=== PATIENT | female | born 1985 | race African-American/Black ===

== ENCOUNTER 2018-05-04 18:34 | Inpatient (IN) | payer MEDICAID ==
[2018-05-04 20:21] LABS: ADD UMIC YES; UR ASCORBIC ACID NEGATIVE (NEGATIVE); UR BACTERIA MANY /HPF (NONE SEEN); UR BILIRUBIN (Dip) NEGATIVE (NEGATIVE); UR BLOOD (Dip) NEGATIVE (NEGATIVE); UR CLARITY CLEAR (CLEAR); UR COLOR STRAW (YELLOW); UR GLUCOSE (Dip) NEGATIVE (NEGATIVE); UR KETONES (Dip) NEGATIVE (NEGATIVE); UR LEUKOCYTE ESTERASE (Dip) 1+ Leu/ul (NEGATIVE); UR NITRITE (Dip) NEGATIVE (NEGATIVE); UR RBC 0 /HPF (0-5); UR SPECIFIC GRAVITY (Dip) 1.005 (1.003-1.030); UR SQUAMOUS EPITHELIAL CELL FEW /HPF (FEW); UR TOTAL PROTEIN (Dip) NEGATIVE (NEGATIVE); UR UROBILINOGEN (Dip) NEGATIVE (NEGATIVE); UR WBC 2 /HPF (0-5)
[2018-05-04] MEDS ORDERED: AL HYDROX/MG HYDROX/SIMETH 30 ML CUP PO (22:00)
[2018-05-04] MEDS: LACTATED RINGER'S 1,000 ML IV (22:32)
[2018-05-04] MEDS: BETAMET NA PHOS/AC(6 MG/ML) 2 ML INJ SYG IM (22:57)
[2018-05-05 01:03] LABS: ADD MAN DIFF? NO
[2018-05-05 01:07] LABS: BASOPHILS % 0.4 % (0.0-2.0); EOSINOPHILS # 0.1 10^3/ul (0.0-0.5); EOSINOPHILS % 0.5 % (0.0-7.0); HEMATOCRIT 35.2 % (37.0-47.0); HEMOGLOBIN 11.8 g/dl (12.0-16.0); LYMPHOCYTES # 1.9 10^3/ul (0.8-2.9); LYMPHOCYTES % 17.3 % (15.0-51.0); MEAN CORPUSCULAR HEMOGLOBIN 29.3 pg (29.0-33.0); MEAN CORPUSCULAR HGB CONC 33.5 g/dl (32.0-37.0); MEAN CORPUSCULAR VOLUME 87.3 fl (82.0-101.0); MEAN PLATELET VOLUME 10.5 fl (7.4-10.4); MONOCYTE # 0.7 10^3/ul (0.3-0.9); MONOCYTES % 6.2 % (0.0-11.0); NEUTROPHIL # 8.3 10^3/ul (1.6-7.5); NEUTROPHILS % 74.7 % (39.0-77.0); PLATELET COUNT 297 10^3/UL (140-415); RED BLOOD COUNT 4.03 10^6/ul (4.20-5.40); RED CELL DISTRIBUTION WIDTH 12.9 % (11.5-14.5)
[2018-05-05 01:07] LABS: WHITE BLOOD COUNT 11.1 10^3/ul (4.8-10.8)
[2018-05-05 01:28] LABS: ALANINE AMINOTRANSFERASE 23 IU/L (13-69); ALBUMIN 3.7 g/dl (3.3-4.9); ALBUMIN/GLOBULIN RATIO 1.32; ALKALINE PHOSPHATASE 117 IU/L (42-121); ANION GAP 11 (5-13); ASPARTATE AMINO TRANSFERASE 34 IU/L (15-46); BILIRUBIN,INDIRECT 0.2 mg/dl (0-1.1); BILIRUBIN,TOTAL 0.2 mg/dl (0.2-1.3); BLOOD UREA NITROGEN 4 mg/dl (7-20); CALCIUM 9.5 mg/dl (8.4-10.2); CARBON DIOXIDE 20 mmol/L (21-31); CHLORIDE 106 mmol/L (97-110); CREATININE 0.43 mg/dl (0.44-1.00); Estimated GFR > 60 mL/min (>60); GLUCOSE 73 mg/dl (70-220); POTASSIUM 3.9 mmol/L (3.5-5.1); SODIUM 137 mmol/L (135-144); TOTAL PROTEIN 6.5 g/dl (6.1-8.1)
[2018-05-05] MEDS: LACTATED RINGER'S 1,000 ML IV (03:45)
[2018-05-05] MEDS: PRENATAL VITAMIN PO (09:01)
[2018-05-05] MEDS: SOD CHLORIDE 0.9% 1,000 ML IV (11:41)
[2018-05-05] MEDS ORDERED: CEFTRIAXONE 1 GM INJ IM (12:15)
[2018-05-05] MEDS: CEFTRIAXONE 1 GM/50 ML (PMX) 50 ML IVPB (13:09)
[2018-05-05] MEDS: BETAMET NA PHOS/AC(6 MG/ML) 2 ML INJ SYG IM (17:50)
== END 2018-05-05 18:00 | disposition home or self-care (01) | DRG 831 ==
LOC: OBT 18:34 → L-D 18:36 → OBT 21:56 → L-D 21:56 → PP1 23:39
PROC: 4A1HXCZ Monitoring of Products of Conception, Cardiac Rate, External Approach (ICD-10-PCS; principal; 2018-05-04)
DX: O41.03X2 Oligohydramnios, third trimester, fetus 2 (principal); O60.03 Preterm labor without delivery, third trimester; O23.43 Unspecified infection of urinary tract in pregnancy, third trimester; Z3A.29 29 weeks gestation of pregnancy; O32.1XX1 Maternal care for breech presentation, fetus 1; O30.043 Twin pregnancy, dichorionic/diamniotic, third trimester; O36.5930 Maternal care for other known or suspected poor fetal growth, third trimester, not applicable or unspecified
CPT/HCPCS: 76815; 76817; 76818; 80053; 81001; 82731; 85025; 87081; 87086

== ENCOUNTER 2018-05-14 12:26 | Outpatient (CLI) | payer OTHER, MEDICAID ==
[2018-05-14 15:00] LABS: RHOGAM PROFILE 1 1
== END 2018-05-14 15:50 | disposition home or self-care (01) ==
LOC: OBT 12:26 → L-D 12:26 → OBT 15:50
DX: O30.003 Twin pregnancy, unspecified number of placenta and unspecified number of amniotic sacs, third trimester (principal); O09.513 Supervision of elderly primigravida, third trimester; Z3A.30 30 weeks gestation of pregnancy
CPT/HCPCS: 86850; 86870; 86885; 86900; 86901; 96372

== ENCOUNTER 2018-05-26 16:53 | Outpatient (CLI) | payer OTHER | END 2018-05-26 18:28 | disposition home or self-care (01) | LOC: OBT 16:53 → L-D 16:55 → OBT 18:28 | DX: O62.9 Abnormality of forces of labor, unspecified (principal); O30.003 Twin pregnancy, unspecified number of placenta and unspecified number of amniotic sacs, third trimester; O09.513 Supervision of elderly primigravida, third trimester; Z3A.32 32 weeks gestation of pregnancy | CPT/HCPCS: Z7500 ==

== ENCOUNTER 2018-06-05 16:46 | Outpatient (CLI) | payer OTHER ==
[2018-06-05] MEDS: LACTATED RINGER'S 1,000 ML IV (18:57)
== END 2018-06-05 22:57 | disposition home or self-care (01) ==
LOC: OBT 16:46 → L-D 16:47 → OBT 22:57
DX: O30.003 Twin pregnancy, unspecified number of placenta and unspecified number of amniotic sacs, third trimester (principal); O09.513 Supervision of elderly primigravida, third trimester; Z3A.33 33 weeks gestation of pregnancy
CPT/HCPCS: 76815; 76818

== ENCOUNTER 2018-06-26 10:32 | Outpatient (CLI) | payer OTHER | END 2018-06-26 12:10 | disposition home or self-care (01) | LOC: OBT 10:32 → L-D 10:32 → OBT 12:10 | DX: O62.9 Abnormality of forces of labor, unspecified (principal); O09.513 Supervision of elderly primigravida, third trimester; O41.93X0 Disorder of amniotic fluid and membranes, unspecified, third trimester, not applicable or unspecified; Z3A.36 36 weeks gestation of pregnancy; O30.003 Twin pregnancy, unspecified number of placenta and unspecified number of amniotic sacs, third trimester | CPT/HCPCS: 76818 ==

== ENCOUNTER 2018-06-29 07:08 | Inpatient (IN) | payer OTHER ==
[2018-06-29] MEDS ORDERED: CARBOPROST 250 MCG INJ IM ×2 (08:00→10:00)
[2018-06-29] MEDS ORDERED: METHYLERGONOVINE 0.2 MG INJ IM ×2 (08:00→10:00)
[2018-06-29] MEDS ORDERED: CEFAZOLIN 2 GM/50 ML (PMX) 50 ML IVPB (08:00)
[2018-06-29] MEDS ORDERED: OXYTOCIN 30 UNITS/LR 500 ML IV ×4 (08:00→11:20)
[2018-06-29] MEDS ORDERED: MISOPROSTOL 200 MCG TAB PR ×2 (08:00→10:00)
[2018-06-29] MEDS: LACTATED RINGER'S 1,000 ML IV ×2 (08:06→10:04)
[2018-06-29 09:22] LABS: ADD MAN DIFF? NO
[2018-06-29 09:25] LABS: WHITE BLOOD COUNT 9.6 10^3/ul (4.8-10.8)
[2018-06-29 09:25] LABS: BASOPHILS % 0.2 % (0.0-2.0); EOSINOPHILS # 0.1 10^3/ul (0.0-0.5); EOSINOPHILS % 0.6 % (0.0-7.0); HEMATOCRIT 35.8 % (37.0-47.0); HEMOGLOBIN 12.1 g/dl (12.0-16.0); LYMPHOCYTES # 1.4 10^3/ul (0.8-2.9); LYMPHOCYTES % 14.2 % (15.0-51.0); MEAN CORPUSCULAR HEMOGLOBIN 29.2 pg (29.0-33.0); MEAN CORPUSCULAR HGB CONC 33.8 g/dl (32.0-37.0); MEAN CORPUSCULAR VOLUME 86.3 fl (82.0-101.0); MEAN PLATELET VOLUME 10.8 fl (7.4-10.4); MONOCYTE # 0.8 10^3/ul (0.3-0.9); MONOCYTES % 8.7 % (0.0-11.0); NEUTROPHIL # 7.2 10^3/ul (1.6-7.5); NEUTROPHILS % 74.7 % (39.0-77.0); PLATELET COUNT 242 10^3/UL (140-415); RED BLOOD COUNT 4.15 10^6/ul (4.20-5.40); RED CELL DISTRIBUTION WIDTH 14.2 % (11.5-14.5)
[2018-06-29 09:46] LABS: INR 0.95; PROTIME 12.8 Sec (11.9-14.9)
[2018-06-29 09:47] LABS: PARTIAL THROMBOPLASTIN TIME 25.4 Sec (23.0-35.0)
[2018-06-29] MEDS ORDERED: METHYLERGONOVINE 0.2 MG TAB PO (10:00)
[2018-06-29] MEDS: CEFAZOLIN 2 GM/50 ML (PMX) 50 ML IVPB ×3 (10:00→17:48)
[2018-06-29] MEDS ORDERED: NA PHOSPHATE/BIPHOS 133 ML ENEMA PR (10:00)
[2018-06-29] MEDS ORDERED: METOCLOPRAMIDE 10 MG INJ (10:01)
[2018-06-29] MEDS ORDERED: ONDANSETRON 4 MG INJ (10:01)
[2018-06-29] MEDS ORDERED: KETOROLAC 30 MG INJ (10:01)
[2018-06-29] MEDS ORDERED: morphine SULFATE/PF (10 MG/10 ML) INJ (10:01)
[2018-06-29] MEDS: CITRIC ACID/NA CITRATE 30 ML CUP PO (10:04)
[2018-06-29 10:22] LABS: HEPATITIS B SURFACE ANTIGEN NEGATIVE (NEGATIVE)
[2018-06-29] MEDS ORDERED: FENTAnyl 50 MCG/ML VIAL ×2 (10:48→10:51)
[2018-06-29] MEDS ORDERED: PHENYLephrine (100 MCG/ML) 10ML SYG (11:30)
[2018-06-29] MEDS ORDERED: KETOROLAC 30 MG INJ IV (12:00)
[2018-06-29] MEDS ORDERED: ONDANSETRON 4 MG INJ IV ×2 (12:00)
[2018-06-29] MEDS ORDERED: NALOXONE (0.4 MG/ML) INJ IV (12:00)
[2018-06-29] MEDS ORDERED: morphine (1 MG/ML) 10ML SYRINGE IV ×3 (12:00)
[2018-06-29] MEDS ORDERED: morphine 4 MG/ML VIAL IV ×3 (12:00)
[2018-06-29] MEDS ORDERED: DIPHENHYDRAMINE 50 MG INJ IV (12:00)
[2018-06-29] MEDS: OXYTOCIN 30 UNITS/LR 500 ML IV (12:34)
[2018-06-29] MEDS: IBUPROFEN 800 MG TAB PO ×2 (14:00→22:00)
[2018-06-29] MEDS: KETOROLAC 30 MG INJ IV ×3 (14:14→21:42)
[2018-06-29] MEDS: SENNA/DOCUSATE NA (8.6MG/50MG) TAB PO (21:20)
[2018-06-29 22:12] LABS: RAPID PLASMA REAGIN NONREACTIVE (NR)
[2018-06-29] MEDS: DIPHENHYDRAMINE 50 MG INJ IV (22:54)
[2018-06-30] MEDS: CEFAZOLIN 2 GM/50 ML (PMX) 50 ML IVPB (02:53)
[2018-06-30] MEDS: LACTATED RINGER'S 1,000 ML IV ×2 (02:54→09:05)
[2018-06-30] MEDS: KETOROLAC 30 MG INJ IV ×2 (04:06→09:46)
[2018-06-30] MEDS: IBUPROFEN 800 MG TAB PO ×3 (06:00→21:59)
[2018-06-30 08:25] LABS: ADD MAN DIFF? NO
[2018-06-30] MEDS: SENNA/DOCUSATE NA (8.6MG/50MG) TAB PO ×2 (08:25→21:00)
[2018-06-30] MEDS: LANOLIN HPA 1 PKT TOP (08:25)
[2018-06-30 08:32] LABS: WHITE BLOOD COUNT 13.4 10^3/ul (4.8-10.8)
[2018-06-30 08:32] LABS: BASOPHILS % 0.3 % (0.0-2.0); EOSINOPHILS # 0.1 10^3/ul (0.0-0.5); EOSINOPHILS % 0.4 % (0.0-7.0); HEMATOCRIT 33.3 % (37.0-47.0); LYMPHOCYTES # 1.5 10^3/ul (0.8-2.9); MEAN CORPUSCULAR HEMOGLOBIN 28.7 pg (29.0-33.0); MEAN CORPUSCULAR VOLUME 86.9 fl (82.0-101.0); MEAN PLATELET VOLUME 10.6 fl (7.4-10.4); MONOCYTE # 1.1 10^3/ul (0.3-0.9); MONOCYTES % 8.4 % (0.0-11.0); NEUTROPHIL # 10.6 10^3/ul (1.6-7.5); NEUTROPHILS % 78.9 % (39.0-77.0); PLATELET COUNT 228 10^3/UL (140-415); RED BLOOD COUNT 3.83 10^6/ul (4.20-5.40)
[2018-06-30 09:28] LABS: RHOGAM PROFILE 1 1
[2018-06-30] MEDS ORDERED: ZOLPIDEM 5 MG TAB PO (12:00)
[2018-06-30] MEDS ORDERED: BISACODYL (EC) 5 MG TAB PO (12:00)
[2018-06-30] MEDS: HYDROCODONE/APAP (5/325) TAB PO (20:32)
[2018-07-01] MEDS: HYDROCODONE/APAP (5/325) TAB PO ×5 (01:09→22:01)
[2018-07-01] MEDS: IBUPROFEN 800 MG TAB PO ×3 (05:31→21:31)
[2018-07-01 07:37] LABS: ADD MAN DIFF? NO
[2018-07-01 07:40] LABS: BASOPHILS % 0.3 % (0.0-2.0); EOSINOPHILS # 0.1 10^3/ul (0.0-0.5); EOSINOPHILS % 0.7 % (0.0-7.0); HEMATOCRIT 32.2 % (37.0-47.0); HEMOGLOBIN 10.7 g/dl (12.0-16.0); LYMPHOCYTES # 1.5 10^3/ul (0.8-2.9); LYMPHOCYTES % 12.2 % (15.0-51.0); MEAN CORPUSCULAR HEMOGLOBIN 29.4 pg (29.0-33.0); MEAN CORPUSCULAR HGB CONC 33.2 g/dl (32.0-37.0); MEAN CORPUSCULAR VOLUME 88.5 fl (82.0-101.0); MEAN PLATELET VOLUME 10.6 fl (7.4-10.4); MONOCYTES % 7.8 % (0.0-11.0); NEUTROPHIL # 9.6 10^3/ul (1.6-7.5); NEUTROPHILS % 77.7 % (39.0-77.0); PLATELET COUNT 245 10^3/UL (140-415); RED BLOOD COUNT 3.64 10^6/ul (4.20-5.40); RED CELL DISTRIBUTION WIDTH 14.1 % (11.5-14.5)
[2018-07-01 07:40] LABS: WHITE BLOOD COUNT 12.3 10^3/ul (4.8-10.8)
[2018-07-01] MEDS: SENNA/DOCUSATE NA (8.6MG/50MG) TAB PO ×2 (08:16→21:31)
[2018-07-01] MEDS: BISACODYL (EC) 5 MG TAB PO ×2 (08:45→16:59)
[2018-07-01] MEDS ORDERED: ZOLPIDEM 5 MG TAB PO (21:30)
[2018-07-01] MEDS: MAGNESIUM HYDROXIDE 30ML CUP PO (21:30)
[2018-07-01] MEDS: DIPHENHYDRAMINE 50 MG CAP PO (23:47)
[2018-07-02] MEDS: HYDROCODONE/APAP (5/325) TAB PO ×6 (02:02→20:45)
[2018-07-02] MEDS: IBUPROFEN 800 MG TAB PO ×3 (05:30→21:36)
[2018-07-02] MEDS: DIPHTH/TET/ACEL PERTUSS (ADULT) 0.5 ML VIAL IM* (08:21)
[2018-07-02] MEDS: SENNA/DOCUSATE NA (8.6MG/50MG) TAB PO ×2 (09:00→21:00)
[2018-07-02] MEDS: MEASLES,MUMPS,RUBELLA VACCINE INJ SC* (09:56)
[2018-07-02] MEDS: MAGNESIUM HYDROXIDE 30ML CUP PO (11:37)
[2018-07-02] MEDS: DIPHENHYDRAMINE 50 MG CAP PO (22:34)
[2018-07-03] MEDS: HYDROCODONE/APAP (5/325) TAB PO ×2 (00:45→06:21)
[2018-07-03] MEDS: SENNA/DOCUSATE NA (8.6MG/50MG) TAB PO (09:00)
[2018-07-03] MEDS: IBUPROFEN 800 MG TAB PO ×2 (09:04→14:00)
== END 2018-07-03 16:50 | disposition home or self-care (01) | DRG 832 ==
LOC: L-D 07:08 → PP1 14:59
PROVIDERS: Obstetrics & Gynecology
DX: O32.1XX1 Maternal care for breech presentation, fetus 1 (principal); K56.7 Ileus, unspecified; O34.13 Maternal care for benign tumor of corpus uteri, third trimester; D25.9 Leiomyoma of uterus, unspecified; O75.89 Other specified complications of labor and delivery; N80.0 Endometriosis of uterus; O30.043 Twin pregnancy, dichorionic/diamniotic, third trimester; G89.18 Other acute postprocedural pain; Z3A.37 37 weeks gestation of pregnancy; Z37.2 Twins, both liveborn
CPT/HCPCS: 85025; 85610; 85730; 86592; 86850; 86870; 86885; 86900; 86901; 87340; 88307; 99464

== ENCOUNTER 2018-07-31 21:40 | Outpatient (CLI) | payer OTHER ==
[2018-07-31] MEDS ORDERED: ACETAMINOPHEN 500 MG TAB PO (22:14)
[2018-07-31] MEDS: LACTATED RINGER'S 1,000 ML IV (22:58)
[2018-07-31 23:07] LABS: ADD MAN DIFF? NO
[2018-07-31 23:09] LABS: BASOPHILS % 0.4 % (0.0-2.0); EOSINOPHILS # 0.2 10^3/ul (0.0-0.5); EOSINOPHILS % 2.8 % (0.0-7.0); HEMATOCRIT 39.7 % (37.0-47.0); HEMOGLOBIN 12.7 g/dl (12.0-16.0); LYMPHOCYTES # 2.1 10^3/ul (0.8-2.9); LYMPHOCYTES % 29.3 % (15.0-51.0); MEAN CORPUSCULAR HEMOGLOBIN 28.3 pg (29.0-33.0); MEAN CORPUSCULAR VOLUME 88.6 fl (82.0-101.0); MEAN PLATELET VOLUME 10.1 fl (7.4-10.4); MONOCYTE # 0.4 10^3/ul (0.3-0.9); MONOCYTES % 6.3 % (0.0-11.0); NEUTROPHIL # 4.3 10^3/ul (1.6-7.5); NEUTROPHILS % 60.9 % (39.0-77.0); PLATELET COUNT 281 10^3/UL (140-415); RED BLOOD COUNT 4.48 10^6/ul (4.20-5.40); RED CELL DISTRIBUTION WIDTH 12.6 % (11.5-14.5)
[2018-07-31 23:11] LABS: ADD UMIC YES; UR ASCORBIC ACID NEGATIVE (NEGATIVE); UR BACTERIA FEW /HPF (NONE SEEN); UR BILIRUBIN (Dip) NEGATIVE (NEGATIVE); UR BLOOD (Dip) 1+ mg/dL (NEGATIVE); UR CLARITY CLEAR (CLEAR); UR COLOR STRAW (YELLOW); UR GLUCOSE (Dip) NEGATIVE (NEGATIVE); UR KETONES (Dip) NEGATIVE (NEGATIVE); UR LEUKOCYTE ESTERASE (Dip) NEGATIVE Leu/ul (NEGATIVE); UR NITRITE (Dip) NEGATIVE (NEGATIVE); UR RBC 0 /HPF (0-5); UR TOTAL PROTEIN (Dip) NEGATIVE (NEGATIVE); UR UROBILINOGEN (Dip) NEGATIVE (NEGATIVE); UR WBC 1 /HPF (0-5)
[2018-07-31] MEDS: LABETALOL HCL 20MG INJ IV (23:11)
[2018-07-31 23:28] LABS: INR 0.95; PROTIME 12.8 Sec (11.9-14.9)
[2018-07-31 23:29] LABS: ALANINE AMINOTRANSFERASE 29 IU/L (13-69); ALBUMIN 4.2 g/dl (3.3-4.9); ALKALINE PHOSPHATASE 108 IU/L (42-121); ANION GAP 8 (5-13); ASPARTATE AMINO TRANSFERASE 38 IU/L (15-46); BILIRUBIN,INDIRECT 0.1 mg/dl (0-1.1); BILIRUBIN,TOTAL 0.1 mg/dl (0.2-1.3); BLOOD UREA NITROGEN 14 mg/dl (7-20); CALCIUM 9.5 mg/dl (8.4-10.2); CARBON DIOXIDE 26 mmol/L (21-31); CHLORIDE 103 mmol/L (97-110); CREATININE 0.73 mg/dl (0.44-1.00); Estimated GFR > 60 mL/min (>60); GLUCOSE 87 mg/dl (70-220); PARTIAL THROMBOPLASTIN TIME 28.4 Sec (23.0-35.0); POTASSIUM 3.7 mmol/L (3.5-5.1); SODIUM 137 mmol/L (135-144); URIC ACID 4.3 mg/dl (3.1-7.9)
[2018-08-01] MEDS: NIFEdipine (XL) 30 MG TAB PO (01:19)
[2018-08-01] MEDS: LACTATED RINGER'S 1,000 ML IV (04:16)
== END 2018-08-01 07:50 | disposition home or self-care (01) ==
LOC: OBT 21:40 → L-D 21:40
DX: O16.5 Unspecified maternal hypertension, complicating the puerperium (principal)
CPT/HCPCS: 80053; 81001; 84560; 85025; 85610; 85730; 96360; 96361